=== PATIENT | female | born 1975 | race Caucasian/White ===

== ENCOUNTER → 2021-11-02 | Outpatient (CLI) | payer MEDICAID, SELFPAY ==
--- NOTE | 2021-11-02 13:08 | CT_ITS ---
STUDY: CT Abdomen And Pelvis W/ Contrast Injection 11/02/2021 6:03 PM REASON FOR EXAM: Female, 45 years old. ABDOMINAL PAIN Technologist Notes GASTRIC BYPASS, HAVING TROUBLE WITH FOOD GETTING STUCK IN ESOPHAGUS SINCE SURG constipation, dysphagia -- oral and IV please TECHNIQUE: Transaxial images were obtained with oral contrast, and IV 100mL Isovue-300 intravenous contrast. Individualized dose optimization techniques were used for this CT. COMPARISON: None. FINDINGS: The visualized lung bases are unremarkable. The visualized portions of the heart are within normal limits. Unremarkable liver. There are surgical clips in the gallbladder fossa consistent with a prior cholecystectomy. Unremarkable spleen. Unremarkable pancreas. Unremarkable bilateral adrenal glands. No acute findings of the right kidney. No acute findings of the left kidney. There are multiple surgical clips around the stomach. There are also anastomotic sutures around the stomach and altered gastrointestinal anatomy. This is consistent for prior gastric surgery (this may include sleeve, Josafat, or gastric bypass and other types of gastric surgery). Unremarkable small intestine. Unremarkable colon. There is non-visualization of the appendix. There are no acute findings of the abdominal aorta. Unremarkable inferior vena cava. Subcentimeter mesenteric lymph nodes. Unremarkable urinary bladder. An intrauterine device is identified within the uterus. There is an umbilical hernia containing fat. There are diffuse degenerative changes of the visualized lumbar spine. CT/Abdomen/Pelvis WITH Contrast IMPRESSION: (NOT LISTED IN ORDER OF SIGNIFICANCE) There are no acute findings. Other findings as above. Electronically Signed: Andrew Vaz MD at 18:05 EDT ,
== END | disposition home or self-care (01) ==
LOC: CT 13:07
PROVIDERS: Visit Provider Nurse Practitioner Adult Health
DX: R10.9 Unspecified abdominal pain (principal); K59.00 Constipation, unspecified; R13.11 Dysphagia, oral phase
CPT/HCPCS: 74177; Q9967

== ENCOUNTER → 2022-01-12 | Outpatient (CLI) | payer MEDICAID, SELFPAY ==
[2022-01-12 16:42] LABS: Absolute Lymphocyte Count 2.75 X10^3/uL (0.83-4.51); Absolute Neutrophil Count 4.1 X10^3/uL (2.0-7.7); Basophil# 0.06 X10^3/uL; Basophil% 0.8 % (0-1); Eosinophil# 0.26 X10^3/uL; Eosinophils% 3.4 % (0-5); Hematocrit 38.1 % (37-47); Hemoglobin 12.4 g/dL (12.0-15.0); Lymphocyte # 2.75 X10^3/ul (0.83-4.51); Lymphocyte % 35.7 % (19-41); Mean Corp Hgb Conc 32.5 g/dL (32-36); Mean Corpuscular Hgb 28.9 pg (27.0-32.0); Mean Corpuscular Volume 88.8 fL (81-99); Mean Platelet Vol. 10.7 fl (6.2-12.0); Monocyte# 0.53 X10^3/uL; Monocyte% 6.9 % (0-10); NRBC Flagged by Analyzer 0 % (0-5); Neutrophil # 4.09 X10^3/uL (2.7-7.7); Neutrophil % 52.9 % (47-70); Platelet Count 257 K/mm3 (150-450); RBC Distribution Width CV 12.6 % (11.6-14.6); RBC Distribution Width SD 41.1 fl (35.1-43.9); Red Blood Count 4.29 M/mm3 (4.2-5.4); White Blood Count 7.7 K/mm3 (4.4-11.0)
[2022-01-12 16:47] LABS: Erythrocyte Sedimentation Rate 13 mm/hr (0-30)
[2022-01-12 16:51] LABS: Vitamin B12 615 pg/mL (211-911)
[2022-01-12 17:08] LABS: ALB/GLOB Ratio 1.1 RATIO (0.9-2.4); AST(SGOT) 26 U/L (15-37); Alanine Aminotransfer ALT/SGPT 38 U/L (13-56); Albumin, Serum 3.6 g/dL (3.2-5.0); Alkaline Phosphatase 77 U/L (45-117); Anion Gap 4 (5-15); BUN 11 mg/dL (7-18); BUN/Creat Ratio 15.2 RATIO (10-20); Bilirubin, Direct 0.15 mg/dL (0.00-0.30); CRP < 2.90 mg/L (0.0-3.0); Calcium,Total 8.7 mg/dL (8.5-10.1); Chloride 107 mmol/L (98-107); Creatinine, Serum 0.72 mg/dL (0.55-1.02); EST Glomerular Filtration Rate 92 mL/min (>60); Est Glom Filt Rate - Afr Amer 111 mL/min (>60); Ferritin 100 ng/mL (8-252); Globulin 3.4 g/dL (2.2-4.2); Glucose 67 mg/dL (74-106); Iron 88 ug/dL (50-170); Iron Binding Capacity,Total 317 ug/dL (250-450); PERCENT IRON SATURATION 27.8 % (15.0-55.0); Potassium 3.9 mmol/L (3.5-5.1); Sodium Level 139 mmol/L (136-145)
[2022-01-16 09:08] LABS: Endomysial Antibody IgA Negative (Negative)
[2022-01-16 09:21] LABS: Immunoglobulin A 228 mg/dL (87-352); t-Transglutaminase IgA <2 U/mL (0-3)
[2022-01-16 15:08] LABS: Anti-Centromere B Ab <0.2 AI (0.0-0.9); Anti-Chromatin <0.2 AI (0.0-0.9); Anti-Jo <0.2 AI (0.0-0.9); Anti-Scleroderma-70 AB <0.2 AI (0.0-0.9); RNP Ab <0.2 AI (0.0-0.9); SJOGREN'S Anti-SS-A test < 0.2 AI (0.0-0.9); SJOGREN'S Anti-SS-B test < 0.2 AI (0.0-0.9); Smith Ab <0.2 AI (0.0-0.9)
[2022-01-17 18:00] LABS: Anti-dsDNA Ab <1 IU/mL (0-9); Vitamin D 1,25-Dihydroxy 35.3 pg/mL (24.8-81.5)
== END | disposition home or self-care (01) ==
LOC: LAB 15:28
PROVIDERS: PCP Nurse Practitioner Family; Referring Provider Nurse Practitioner Adult Health; Visit Provider Nurse Practitioner Adult Health
DX: K59.09 Other constipation (principal); R10.9 Unspecified abdominal pain; Z98.84 Bariatric surgery status
CPT/HCPCS: 36415; 80053; 82248; 82607; 82652; 82728; 82746; 82784; 83036; 83516; 83540; 83550; 84443; 85025; 85652; 86140; 86225; 86235; 86255

== ENCOUNTER 2022-01-24 05:26 | Day surgery (SDC) | payer MEDICAID, SELFPAY ==
[2022-01-24] VITALS (7 sets, daily range): BP systolic 100–144; BP diastolic 62–87; PULSE 51–64; RESP 16; TEMP 36.8–37.2; O2SAT 100; BMI 28.8
--- NOTE | 2022-01-24 | EGD_PTH ---
PATIENT: JOAO CAMPBELL LOC: EN U#:[id number] AGE/SX: 46/F ROOM: RE01/24/[address]: Dr. Mathew Arauz DO : 1975 BED: DIS: 01/24/2022 SPEC #: [id number] RECD: 01/24/22 10:18 STATUS: MYA JEANE #: [id number] BERTRAM: 01/24/22 00:[address]: Mathew Arauz DEPT: SURGICAL PATHOLOGY RECD BY: Ridge Neri ENTERED: 01/24/22 10:18 SP TYPE: EGD BIOPSY OT DR: Xochilt Gonzales, FISH DRIER-C Tissues: A - Jejunum, NOS B - COLON BIOPSY C - Esophageal mucous membrane Procedures: Special Stain Group II Surgery Specimen Level IV Alcian Blue/PAS (control) HEADER OPERATION: Colonoscopy, EGD ([facility] [place]) with biopsy PRE-OP DIAGNOSIS: Chronic constipation TISSUE SUBMITTED: A ? Jejunum biopsy, B ? Anastomosis biopsy, C ? Distal esophagus biopsy MICROSCOPIC DIAGNOSIS A. Jejunum, biopsy: No pathologic change. B. Anastomosis, biopsy: Fragments of gastric mucosa with mild chronic inflammation. C. Distal esophagus, biopsy: Gastroesophageal junctional mucosa with mild chronic inflammation. No evidence of goblet cell metaplasia. See comment. AM:mandeep 01/25/2022 COMMENT C. Alcian blue/PAS stain with matched control supports the above diagnosis. MICROSCOPIC DESCRIPTION Slides are reviewed. GROSS DESCRIPTION A - Received in fixative is one container labeled with the patient's name and designated jejunum biopsy. The specimen consists of two irregular fragments of light starks soft tissue that in aggregate measure 0.8 x 0.3 x 0.1 cm. The specimen is totally submitted in one cassette. B - Received in fixative is one container labeled with the patient's name and designated anastomosis biopsy. The specimen consists of two irregular fragments of light starks soft tissue that in aggregate measure 0.6 x 0.3 x 0.1 cm. The specimen is totally submitted in one cassette. C - Received in fixative is one container labeled with the patient's name and designated distal esophagus biopsy. The specimen consists of two irregular fragments of light starks soft tissue that in aggregate measure 0.6 x 0.2 x 0.1 cm. The specimen is totally submitted in one cassette. / AM:mandeep 01/24/2022 TC:3 CPT: 14617 x3, 75091
[2022-01-24 06:04] LABS: Internal QC Validated? YES +Cl - CLEAR BKGD; Pregnancy, Urine Negative Negative
[2022-01-24] MEDS: Lactated Ringers 1,000 ML 15 ML IV (06:04)
--- NOTE | 2022-01-24 06:34 | PCM.HP.BLA ---
History and Physical Date of Admission: 01/24/22 JOAO CAMPBELL, is a 46 F who presents to the office today for follow-up chronic constipation. She was unable to do a successful colon prep so she rescheduled her endoscopy.? She is scheduled for EGD to evaluate dysphagia and colonoscopy for screening and chronic constipation.? She tried the highest dose of Linzess which is 290 mcg without success.? Tried and failed Amitiza as well as lactulose since her last appointment. Dysphagia--feels like food gets stuck at upper esophagus, even when food is chewed to a mush consistency. This started after Jana en Y in July 2020. Very uncomfortable. No regurgitation. Does everything she can to avoid vomiting, due to her hx of binging and purging. Often has nausea with this. Takes ondansetron with minimal relief of nausea. she had EGD 04/2021 by her bariatric surgeon--esophagus appeared normal. Previous hx of esophageal spasms--w/ cold water; only lasted about a year. Doesn't think she had esophageal manometry prior to bariatric surgery. When she had the Jana en Y, hiatal hernia was repaired. She had severe acid reflux prior to the surgery, used to wake up aspirating. She is still on pantoprazole, was told to remain on it by bariatric doctor due to dysphagia, pt would prefer not to have to remain on it. Her weight at time of surgery was 331 lbs; today's weight is 200 pounds. IBS-C since [employer], worse in past few years. Significant painful bloating. Has BM every 10-14 days, has to strain. Takes 1 capful of miralax daily, with metamucil. Suppository--only small BM.? She did a colon clean out per bariatric doctor--combination of miralax, 2 bottles of mag citrate, dulcolax--took these on a Saturday but no BM until . Enemas--no relief at all. Does abd massage multiple times a day. Never Trulance. Tried mineral oil and castor oil, no relief. She's never had a colonoscopy.? Only iron supplement she takes now is what's in [place] [employer]. 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 She has 6 sons. ROS Const Constitutional: Positive for fatigue ENT ENT: Positive for difficulty swallowing Gastro GI: Positive for bloating, constipation, difficulty swallowing and excessive flatus; No abdominal pain, belching, change in bowel habits, change in stool character, coffee ground emesis, cramping, diarrhea, heartburn, feeling full early, incontinent of stools, Vomiting blood/hematemesis, Blood in stool, loose stools, Black,tarry stools, nausea/dyspepsia, pain with swallowing, vomiting or other Musc Musculoskeletal: Positive for joint swelling, numbness, tingling, restless legs and leg pain at night; No joint pain Skin Skin: No yellowing of the eye or itchy eyes Neuro Neurology: Positive for numbness, tingling and restless legs Psych Psychiatric: Positive for anxiety and No depression Endo Endocrine: Positive for fatigue Aller/Imm Allergy/Immunologic: No itchy eyes Lenny/Lymp Hematologic/Lymphatic: Positive for easy bruising; No easy bleeding Exam Const General: cooperative and no acute distress HENMT Head: normal to inspection Eyes General: appearance normal, both eyes and all related structures Resp Effort & Inspection: normal respiratory effort GI Inspection: distended Palpation: soft and tender Quality Reporting Tobacco Screening ([facility]) Smoking Status: Never smoker Assessment and Plan Assessment and Plan (1) Chronic constipation: ?Status:?Chronic ?Plan: Samples Trulance to try now, 3 mg daily Rx Motegrity, will likely need prior auth Rx golytely for prep, can also do Fleets enemas the 2 days prior to endo f/u after egd and colonoscopy ? ? ? Medications: I have re-examined the patient. There are no clinical changes since date of exam.
--- NOTE | 2022-01-24 07:02 | OP.EGD_ITS ---
Patient Name: Elena Wade Procedure Date: 01/24/2022 6:26 AM Date of : 1975 Age: 46 Procedure: Upper GI endoscopy Indications: Generalized abdominal pain, Heartburn, Failure to respond to medical treatment Providers: Mathew Arauz DO Referring MD: Xochilt Gonzales Medicines: Monitored Anesthesia Care Patient Profile: This is a 46 year old female. Refer to note in patient chart for documentation of history and physical. Patient has symptoms of chronic abdominal distention, acute epigastric abdominal pain and chronic nausea. Complications: No immediate complications. Procedure: Pre-Anesthesia Assessment: - Prior to the procedure, a History and Physical was performed, and patient medications and allergies were reviewed. The risks and benefits of the procedure and the sedation options and risks were discussed with the patient. All questions were answered and informed consent was obtained. Patient identification and proposed procedure were verified by the physician in the pre-procedure area. Mental Status Examination: alert and oriented. Airway Examination: normal oropharyngeal airway and neck mobility. Respiratory Examination: clear to auscultation. CV Examination: normal. Prophylactic Antibiotics: The patient does not require prophylactic antibiotics. Prior Anticoagulants: The patient has taken no previous anticoagulant or antiplatelet agents. ASA Grade Assessment: II - A patient with mild systemic disease. After reviewing the risks and benefits, the patient was deemed in satisfactory condition to undergo the procedure. The anesthesia plan was to use moderate sedation / analgesia (conscious sedation). Immediately prior to administration of medications, the patient was re-assessed for adequacy to receive sedatives. The heart rate, respiratory rate, oxygen saturations, blood pressure, adequacy of pulmonary ventilation, and response to care were monitored throughout the procedure. The physical status of the patient was re-assessed after the procedure. After obtaining informed consent, the endoscope was passed under direct vision. Throughout the procedure, the patient's blood pressure, pulse, and oxygen saturations were monitored continuously. The colonoscope was introduced through the mouth, and advanced to the second part of duodenum. The upper GI endoscopy was accomplished without difficulty. The patient tolerated the procedure well. Scope In: 6:39:20 AM Scope Out: 6:44:04 AM Total Procedure Duration Time 0 hours 4 minutes 44 seconds Findings: The Z-line was irregular and was found 39 cm from the incisors. Biopsies were taken with a cold forceps for histology. Verification of patient identification for the specimen was done. Estimated blood loss was minimal. Evidence of a Jana-en-Y gastrojejunostomy was found. The gastrojejunal anastomosis was characterized by congestion. This was traversed. The tcwrh-hn-lhuithl limb was characterized by healthy appearing mucosa. The iodjqvmu-oq-yunetac limb was not examined as it could not be found. Biopsies were taken with a cold forceps for histology. Verification of patient identification for the specimen was done. Estimated blood loss was minimal. Patchy mildly congested mucosa without active bleeding and with no stigmata of bleeding was found in the jejunum. Biopsies were taken with a cold forceps for histology. Verification of patient identification for the specimen was done. Estimated blood loss was minimal. Impression: - Z-line irregular, 39 cm from the incisors. Biopsied. - Jana-en-Y gastrojejunostomy with gastrojejunal anastomosis characterized by congestion. Biopsied. - Congested (edematous) jejunum. Biopsied. Recommendation: - Discharge patient to home. - Resume previous diet. - Continue present medications. - Await pathology results. Procedure Code(s): --- Professional --- 24061, Esophagogastroduodenoscopy, flexible, transoral; with biopsy, single or multiple CPT copyright 2017 [employer]. All rights reserved. The codes documented in this report are preliminary and upon raw material handler review may be revised to meet current compliance requirements. Mathew Arauz DO 01/24/2022 7:01:26 AM This report has been signed electronically. Number of Addenda: 1 Note Initiated On: 01/24/2022 6:26 AM Addendum Number: 1 Addendum Date: 03/01/2022 6:00:46 AM MAC was used as sedation for this procedure. Mathew Arauz DO 03/01/2022 6:00:52 AM This report has been signed electronically.
--- NOTE | 2022-01-24 07:02 | OP.CCLET_ITS ---
03/01/2022 Xochilt Gonzales Re : Upper GI endoscopy procedure for Elena Wade Dear Christian This procedure was performed on Monday, January 24, 2022. My impressions and recommendations are as follows: Impressions : - Z-line irregular, 39 cm from the incisors. Biopsied. - Jana-en-Y gastrojejunostomy with gastrojejunal anastomosis characterized by congestion. Biopsied. - Congested (edematous) jejunum. Biopsied. Recommendations : - Discharge patient to home. - Resume previous diet. - Continue present medications. - Await pathology results. My findings are described in the full procedure note, which is enclosed. If I can be of further assistance, please feel free to contact me at . Sincerely, Mathew Arauz, 01/24/2022 7:01:26 AM This report has been signed electronically.
--- NOTE | 2022-01-24 07:05 | OP.COLON_ITS ---
Patient Name: Elena Wade Procedure Date: 01/24/2022 6:44 AM Date of : 1975 Age: 46 Procedure: Colonoscopy Indications: Generalized abdominal pain, Change in bowel habits, Change in stool caliber, Constipation Providers: Mathew Arauz DO Referring MD: Xochilt Gonzales Medicines: Monitored Anesthesia Care Patient Profile: This is a 46 year old female. Refer to note in patient chart for documentation of history and physical. Patient has symptoms of chronic abdominal distention, acute epigastric abdominal pain and chronic nausea. Last Colonoscopy: none. The patient's first colonoscopy is today. Complications: No immediate complications. Procedure: Pre-Anesthesia Assessment: - Prior to the procedure, a History and Physical was performed, and patient medications and allergies were reviewed. The risks and benefits of the procedure and the sedation options and risks were discussed with the patient. All questions were answered and informed consent was obtained. Patient identification and proposed procedure were verified by the physician in the pre-procedure area. Mental Status Examination: alert and oriented. Airway Examination: normal oropharyngeal airway and neck mobility. Respiratory Examination: clear to auscultation. CV Examination: normal. Prophylactic Antibiotics: The patient does not require prophylactic antibiotics. Prior Anticoagulants: The patient has taken no previous anticoagulant or antiplatelet agents. ASA Grade Assessment: II - A patient with mild systemic disease. After reviewing the risks and benefits, the patient was deemed in satisfactory condition to undergo the procedure. The anesthesia plan was to use moderate sedation / analgesia (conscious sedation). Immediately prior to administration of medications, the patient was re-assessed for adequacy to receive sedatives. The heart rate, respiratory rate, oxygen saturations, blood pressure, adequacy of pulmonary ventilation, and response to care were monitored throughout the procedure. The physical status of the patient was re-assessed after the procedure. After I obtained informed consent, the scope was passed under direct vision. Throughout the procedure, the patient's blood pressure, pulse, and oxygen saturations were monitored continuously. The colonoscope was introduced through the anus and advanced to the hepatic flexure. The colonoscopy was performed with moderate difficulty due to poor bowel prep with stool present. The patient tolerated the procedure well. The quality of the bowel preparation was inadequate. Scope In: 6:46:08 AM Scope Out: 6:54:56 AM Total Procedure Duration Time 0 hours 8 minutes 48 seconds Findings: The perianal and digital rectal examinations were normal. Copious quantities of stool was found in the entire colon, precluding visualization. Lavage of the area was performed using copious amounts of sterile water, resulting in incomplete clearance with continued poor visualization. Impression: - Preparation of the colon was inadequate. - Stool in the entire examined colon. - No specimens collected. Recommendation: - Discharge patient to home. - Resume previous diet. - Continue present medications. - Repeat colonoscopy because the bowel preparation was poor. Procedure Code(s): --- Professional --- 33322, 53, Colonoscopy, flexible; diagnostic, including collection of specimen(s) by brushing or washing, when performed (separate procedure) CPT copyright 2017 [employer]. All rights reserved. The codes documented in this report are preliminary and upon machine setter review may be revised to meet current compliance requirements. Mathew Arauz DO 01/24/2022 7:05:04 AM This report has been signed electronically. Number of Addenda: 1 Note Initiated On: 01/24/2022 6:44 AM Addendum Number: 1 Addendum Date: 03/01/2022 6:01:09 AM MAC was used as sedation for this procedure. Mathew Arauz DO 03/01/2022 6:01:16 AM This report has been signed electronically.
--- NOTE | 2022-01-24 07:05 | OP.CCLET_ITS ---
03/01/2022 Xochilt Gonzales Re : Colonoscopy procedure for Elena Wade Dear Christian This procedure was performed on Monday, January 24, 2022. My impressions and recommendations are as follows: Impressions : - Preparation of the colon was inadequate. - Stool in the entire examined colon. - No specimens collected. Recommendations : - Discharge patient to home. - Resume previous diet. - Continue present medications. - Repeat colonoscopy because the bowel preparation was poor. My findings are described in the full procedure note, which is enclosed. If I can be of further assistance, please feel free to contact me at . Sincerely, Mathew Arauz, 01/24/2022 7:05:04 AM This report has been signed electronically.
== END 2022-01-24 07:59 | disposition home or self-care (01) ==
LOC: EN 05:26 → AC 05:27
PROVIDERS: Anesthesiology; PCP Nurse Practitioner Family; Referring Provider Nurse Practitioner Family; Visit Provider Internal Medicine Gastroenterology
PROC: 0DJD8ZZ Inspection of Lower Intestinal Tract, Via Natural or Artificial Opening Endoscopic (ICD-10-PCS; CPT 45378; principal; 2022-01-24 06:25)
DX: K21.00 Gastro-esophageal reflux disease with esophagitis, without bleeding (principal); K31.89 Other diseases of stomach and duodenum; J45.909 Unspecified asthma, uncomplicated; F32.A Depression, unspecified; E07.9 Disorder of thyroid, unspecified; Z79.899 Other long term (current) drug therapy; Z86.718 Personal history of other venous thrombosis and embolism
CPT/HCPCS: 45378; 43239; 81025; 88305; 88313; J7120; J2405

== ENCOUNTER → 2022-05-15 | Outpatient (CLI) | payer MEDICAID, SELFPAY ==
--- NOTE | 2022-05-15 09:45 | CDU_ITS ---
Reason For Study: bruit Rt. Velocities/BP Lt. Velocities/BP Prox CCA 120.7/24.9 cm/sec. Prox CCA 114.6/32.3 cm/sec. Mid CCA 92.5/24.9 cm/sec. Mid CCA 110.9/32.3 cm/sec. Dist CCA 75.3/18.8 cm/sec. Dist CCA 86.3/26.2 cm/sec. Prox ICA 41.0/10.2 cm/sec. Prox ICA 71.6/11.4 cm/sec. Mid ICA 105.8/30.0 cm/sec. Mid ICA 91.2/37.2 cm/sec. Dist ICA 115.8/40.9 cm/sec. Dist ICA 115.8/47.0 cm/sec. Rt. ICA/CCA = 1.3. Lt. ICA/CCA = 1.0. Prox ECA 87.6/18.8 cm/sec. Prox ECA 76.5/18.8 cm/sec. Rt. Vert. 43.3/15.1 cm/sec. Lt. Vert. 64.2/13.9 cm/sec. Right Extracranial There is intimal thickening but no significant atherosclerotic plaque noted in the right common carotid artery. There is intimal thickening but no significant atherosclerotic plaque noted in the right internal carotid artery. There is intimal thickening but no significant atherosclerotic plaque noted in the right external carotid artery. Antegrade flow is noted in the right vertebral artery. Left Extracranial There is intimal thickening but no significant atherosclerotic plaque noted in the left common carotid artery. There is intimal thickening but no significant atherosclerotic plaque noted in the left internal carotid artery. There is intimal thickening but no significant atherosclerotic plaque noted in the left external carotid artery. Antegrade flow is noted in the left vertebral artery. Procedure Carotid Duplex 48525. This is a Carotid Duplex examination using B-mode, color flow and specral Doppler. The exam was diagnostic. Exam performed in department. VL/Carotid Duplex Ultrasound Interpretation Summary Normal right extracranial internal carotid. Normal left extracranial internal carotid. Patent and antegrade vertebrals bilaterally. Ordering Physician: Abdoul Saab Performed By: Giovanny Chan RVT
--- NOTE | 2022-05-15 10:19 | RAD_ITS ---
STUDY: X-RAY - ABDOMEN/PELVIS REASON FOR EXAM: Female, 46 years old. Sitz markers. Follow-up. TECHNIQUE: Single AP view of the abdomen / pelvis on 2 images. COMPARISON: CT of the abdomen and pelvis dated November 02, 2021. FINDINGS: Normal visualized lung bases. There is an unremarkable bowel gas pattern. There is no demonstrated free abdominal air. The visualized liver, spleen and kidneys are grossly normal in size and morphology. Stable surgical clips in the left abdomen. IUD unchanged. Multiple Sitzmarks markers projected over the ascending colon and descending colon to the level of the sigmoid. Normal visualized osseous structures. RAD/Abdomen Single View IMPRESSION: Sitz markers as described. No acute abnormality. Electronically Signed: Luis Enrique Holguin, at 14:03 EST ,
== END | disposition home or self-care (01) ==
PROVIDERS: PCP Nurse Practitioner Family; Referring Provider Internal Medicine Cardiovascular Disease; Visit Provider Internal Medicine Cardiovascular Disease
DX: K59.09 Other constipation (principal); R09.89 Other specified symptoms and signs involving the circulatory and respiratory systems; R00.2 Palpitations; R55 Syncope and collapse; I10 Essential (primary) hypertension
CPT/HCPCS: 74018; 93880

== ENCOUNTER → 2022-05-17 | Outpatient (CLI) | payer MEDICAID, SELFPAY ==
--- NOTE | 2022-05-17 12:03 | BI_ITS ---
MAMMOGRAPHY - BILATERAL SCREENING REASON FOR EXAM: Female, 46 years old. Routine annual screening examination. PERTINENT HISTORY: Non-contributory. TECHNIQUE: Digital bilateral breast kimberly (3D mammographic acquisition) in the CC and MLO projections. 2-D mediolateral oblique (MLO) and craniocaudad (CC) views of both breasts were obtained. CAD: Full Field Digital Mammography with Computer Added Detection was performed. COMPARISON: Comparison is made with prior outside examination dated 03/02/2021. FINDINGS: Breast Composition: There are scattered areas of fibroglandular density. There are no dominant masses or suspicious calcifications. No other significant abnormalities are identified. There has been no significant change since the prior study. BI/SCRN MAMM (CAD)W/KIMBERLY BILAT IMPRESSION: Stable bilateral screening mammogram. Yearly follow-up mammogram recommended. (A) ASSESSMENT CATEGORY: BIRADS Category 1: Negative. A letter regarding these results will be sent to the patient by the facility within 30 days. Approximately 10% of breast cancers are not detected by mammography. A normal mammogram should not delay biopsy of a clinically suspicious abnormality. [id number] Electronically Signed: Carlitos English MD at 13:20 EST ,
--- NOTE | 2022-05-17 13:00 | RAD_ITS ---
EXAM: XR ABDOMEN, 1 VIEW CLINICAL INDICATION: sitz marker day 5 TECHNIQUE: Frontal supine view of the abdomen/pelvis. This report was created using [employer] report generation technology. COMPARISON: 05/15/2022 FINDINGS: LOWER THORAX: No acute pathology. GASTROINTESTINAL TRACT: There are 22 Sitzmarks markers are present extending from the ascending colon down to the sigmoid colon. Non-obstructive. No bowel or stomach distention. ORGANS: Intrauterine device is present. Overall there has been minimal change from the reference exam. No organomegaly. No abnormal calcifications. BONES/JOINTS: No acute pathology. SOFT TISSUES: No acute pathology. RAD/Abdomen Single View IMPRESSION: No significant change in distribution of the Sitzmarks throughout the colon. Electronically Signed: Omar Crawford MD at 0:00 EST ,
== END | disposition home or self-care (01) ==
PROVIDERS: PCP Nurse Practitioner Family; Referring Provider Nurse Practitioner Family; Visit Provider Nurse Practitioner Family
DX: Z12.31 Encounter for screening mammogram for malignant neoplasm of breast (principal); K59.09 Other constipation
CPT/HCPCS: 74018; 77063; 77067

== ENCOUNTER → 2022-06-05 | Outpatient (CLI) | payer MEDICAID, SELFPAY ==
[2022-06-05 09:22] LABS: Hematocrit 38.2 % (37-47); Hemoglobin 12.3 g/dL (12.0-15.0); Mean Corp Hgb Conc 32.2 g/dL (32-36); Mean Corpuscular Hgb 29.3 pg (27.0-32.0); Mean Platelet Vol. 10.1 fl (6.2-12.0); Platelet Count 233 K/mm3 (150-450); RBC Distribution Width CV 12.6 % (11.6-14.6); RBC Distribution Width SD 41.5 fl (35.1-43.9); White Blood Count 5.7 K/mm3 (4.4-11.0)
[2022-06-05 09:38] LABS: Anion Gap 1 (5-15); BUN 17 mg/dL (7-18); BUN/Creat Ratio 27.6 RATIO (10-20); Calcium,Total 8.7 mg/dL (8.5-10.1); Chloride 107 mmol/L (98-107); Creatinine, Serum 0.62 mg/dL (0.55-1.02); EST Glomerular Filtration Rate 110 mL/min (>60); Est Glom Filt Rate - Afr Amer 133 mL/min (>60); Glucose 83 mg/dL (74-106); Potassium 3.8 mmol/L (3.5-5.1); Sodium Level 140 mmol/L (136-145)
[2022-06-05 09:45] LABS: Internal QC Validated? YES +Cl - CLEAR BKGD
[2022-06-05 09:48] LABS: Pregnancy, Serum, hCG Quali. POSITIVE Negative
[2022-06-05 10:04] LABS: hCG Titer Quant., Serum 6 mIU/mL (1-3)
== END | disposition home or self-care (01) ==
PROVIDERS: PCP Nurse Practitioner Family; Visit Provider Internal Medicine Cardiovascular Disease
DX: R00.2 Palpitations (principal); R09.89 Other specified symptoms and signs involving the circulatory and respiratory systems; R55 Syncope and collapse; I10 Essential (primary) hypertension
CPT/HCPCS: 36415; 80048; 84702; 84703; 85027; J7040; A4216